=== PATIENT | female | born 1935 | race Caucasian/White ===

== ENCOUNTER 2018-11-18 11:41 | Inpatient (IN) ==
[2018-11-18] MEDS ORDERED: NON-FORMULARY MEDICATION 1 EACH EACH (Piperacillin-Tazo-Dextrose,Iso [Zosyn 3.375 Gm/50 Ml IV SCH (18:45)
[2018-11-18] MEDS: Levalbuterol Neb 1.25 MG/3 ML IH SCH ×2 (23:15→23:36)
[2018-11-18] MEDS: Ipratropium Neb 0.5 MG NEBULIZER IH SCH (23:36)
[2018-11-19] MEDS: Piperacillin/Tazobactam 3.375 GM in 0.9 % Sodium Chloride Mini Bag 100 ML IVPB SCH ×3 (00:19→17:01)
[2018-11-19] MEDS: Ipratropium Neb 0.5 MG NEBULIZER IH SCH (03:39)
[2018-11-19] MEDS: Levalbuterol Neb 1.25 MG/3 ML IH SCH ×2 (03:39→08:15)
[2018-11-19 06:19] LABS: Basophils % 0.1 %; Hematocrit 37.9 % (35.3-44.9); Hemoglobin 12.8 g/dL (11.5-15.4); Immature Granulocytes % 0.4 % (0-4); Lymphocytes # 0.4 K/mcL (0.6-4.6); Lymphocytes % 3.9 %; Mean Corpuscular HGB Conc 33.8 g/dL (31.6-35.5); Mean Corpuscular Hemoglobin 29.9 pg (28.0-33.3); Mean Corpuscular Volume 88.6 fL (83.0-100.0); Mean Platelet Volume 9.3 fL (9.4-12.4); Monocytes # 0.5 K/mcL (0.0-1.3); Monocytes % 4.7 %; Platelet Count 253 K/mcL (140-400); Red Blood Count 4.28 M/mcL (3.82-4.97); Red Cell Distribution Width 13.2 % (11.5-14.5); Segmented Neutrophils % 90.9 %
[2018-11-19 06:21] LABS: Neutrophils # 9.8 K/mcL (1.6-8.9)
[2018-11-19 07:00] LABS: BUN/Creatinine Ratio 67 (6-26); Blood Urea Nitrogen 26 mg/dL (8-23); Calcium 8.6 mg/dL (8.6-10.3); Carbon Dioxide 45 mEq/L (23-29); Chloride 86 mEq/L (98-107); Glucose 113 mg/dL (70-105); Osmolality,Calculated 288 (280-300); Potassium 3.5 mEq/L (3.5-5.1); Sodium 136 mEq/L (136-145); eGFR For Non-African Americans > 60 (> 60)
[2018-11-19] MEDS ORDERED: predniSONE 10 MG TABLET PO SCH (09:00)
[2018-11-19] MEDS: Multivit/Ca/Min/Fe/FA 1 TAB TABLET PO SCH (09:02)
[2018-11-19] MEDS ORDERED: Levalbuterol Neb 1.25 MG/3 ML IH PRN (09:46)
[2018-11-19] MEDS ORDERED: Tiotropium 18 MCG inhalation IH ONE (10:13)
[2018-11-19] MEDS: Tiotropium 18 MCG inhalation IH SCH (10:29)
--- NOTE | 2018-11-19 15:40 | Internal Med History&Physical ---
Date of Encounter: 11/19/18 Time of Encounter: 15:05 Assessment and Plan (1) Pneumonia Current visit: No Status: Acute Chest CTA 11/10/2018 showed bilateral multifocal airspace disease greatest in the lower lobes. Continue IV Zosyn through 11/22/2018. Lactobacillus will be added. Qualifiers: Pneumonia type: due to unspecified organism Laterality: bilateral Lung location: lower lobe of lung Qualified Code(s): J18.1 - Lobar pneumonia, unspe cified organism (2) Edema Current visit: Yes Status: Acute Check BN peptide in a.m. Reduce prednisone dose. Qualifiers: Edema type: unspecified Qualified Code(s): R60.9 - Edema, unspecified (3) Anxiety Current visit: Yes Status: Acute Xanax will be available prn (4) DJD (degenerative joint disease) Current visit: Yes Status: Acute Tylenol be available prn. Qualifiers: Osteoarthritis location: multiple joints Osteoarthritis type: primary Qualified Code(s): M15.0 - Primary generalized (osteo)arthritis (5) Weight loss Current visit: Yes Status: Acute TSH was normal at 0.545 on 11/18/2018. CT of chest abdomen pelvis did not show pathology suspicious for malignancy. (6) COPD with acute exacerbation Current visit: No Status: Acute Continue to taper prednisone. Spiriva has been ordered along with prn Xopenex nebulizer Rx. Internal Medicine - H&P: HPI Chief complaint: Weakness, pneumonia Admitted From: Hospital to Hospital Transfer Plans for Post Hospital Care: Home History of present illness: Ms. Cooper is a 83 year old female who was hospitalized at [facility] November 10- after presenting following a fall at home. She was found to have sepsis/pneumonia. Hyponatremia was present but corrected during her hospital stay. Elevated troponin was felt to be due to demand ischemia. Following stabilization she was discharged to [facility] swing bed for continuation of IV antibiotics and r ehabilitation therapy. Respiratory history is significant for having smoked from age 20 until quitting 1 week ago. She smoked up to 2 packs per day. She states she had PFTs many years ago and was diagnosed with emphysema. She does not use home oxygen. Cardiovascular history is negative for hypertension WI DVT or pulmonary embolus. Echocardiogram 11/11/2018 showed LVEF 65%. There was mild tricuspid regurgitation and mild to moderate pulmonary hypertension with estimated RVSP 47 mmHg. Interventricular septum and posterior wall thickness measurements were 1.30 and 1.10 cm respectively. E/A ratio was 0.70. Past Med Surg Social Fam HX - Past Medical History Medical history: no medical history, other Additional medical history: Smoker Psychiatric history: no psych history - Past Surgical History Surgical History: no surgical history Additional surgical history: unknown - Social History Smoking Status: Current every day smoker Smokeless Tobacco Status: No Alcohol use: none Drug use: none Internal Medicine - H&P: Meds Multivit-Min/Iron/Folic Acid/K [Adults Multivitamin Tablet] 1 tab PO DAILY 11/11/18 [History] Ipratropium Neb [Atrovent Neb] 0.5 mg IH [id number] inhsol 11/18/18 [Rx] Levalbuterol Neb [Xopenex Neb] 1.25 mg IH [id number] vial.neb 11/18/18 [Rx] Qtzdqfkqcdno-Sble-Xppajhbf,Iso [Zosyn 3.375 gm/50 ml Galaxy] 3.375 gm IV Q8H 4 Days #12 froz.piggy 11/18/18 [Rx] predniSONE [PredniSONE] See Taper PO DAILY 21 Days #63 tablet 11/18/18 [Rx] Allergy/AdvReac Type Severity Reaction Status Date / Time No Known Allergies Allergy Verified 11/10/18 16:38 All Systems PM: A 10-system review of systems was performed and is negative for pertinent findings except as documented above in the HPI. Review of systems: Gen.: She states her weight has declined at least 25 pounds in the past 2-3 years, unintentionally. She attributes this to change in her diet. Cardiovascular: As per history of present illness Respiratory: As per history of present illness GI: She denies disorders of her liver gallbladder or exocrine pancreas : She denies hematuria dysuria or kidney stones Neurologic: She denies large distribution strokes or seizures. Endocrine: She denies diabetes thyroid disease or hyperlipidemia Hematology/oncology: She denies blood disorders cancers or anemia Psychiatric: She has anxiety but denies depression or other mental health diagnosis [place] skeletal: She has had right total shoulder replacement approximately 1998. She has had right leg vein stripping surgery. She denies other bone joint or muscle disorders. - Constitutional Vitals: Temp Pulse Resp BP Pulse Ox 98.0 F 93 14 124/72 89 11/19/18 06:58 11/19/18 12:36 11/19/18 10:29 11/19/18 06:58 11/19/18 12:36 Exam: Gen.: She is a well-developed lean female sitting comfortably in chair at bedside who appears in no acute distress HEENT: Head is atraumatic and normocephalic. Eyes: EOMI. There is no scleral icterus. Mouth: Mucosa is moist. Neck: Supple and nontender. There is no thyromegaly or adenopathy noted. Heart: Regular without murmurs gallops or ectopics Lungs: No wheezes or crackles are heard. Abdomen: Soft and nontender. Exam is limited because she is in the seated posi tion. Extremities: She has significant DJD changes of her hands. She has 1-2+ edema of the dorsum of the feet and lower anterior shins bilaterally. Dorsalis pedis and posterior tibial pulses are trace palpable. Neurologic: Mental status: She is talkative and a good historian. Cranial nerves: Smile is symmetric. Forehead wrinkles bilaterally. Tongue protrudes midline. EOMI. Motor: There is no pronator drift. Cerebellar: Finger to nose is intact bilaterally. Skin: Warm and dry Internal Med - H&P Results - Labs CBC & Chem 7: 11/19/18 05:47 11/19/18 05:47 Labs: Short CBC 11/19/18 Range/Units 05:47 WBC 10.8 D (4.3-11.1) K/mcL Hgb 12.8 (11.5-15.4) g/dL Hct 37.9 (35.3-44.9) % Plt Count 253 (140-400) K/mcL Neutrophils # 9.8 H (1.6-8.9) K/mcL BMP 11/19/18 05:47 Sodium 136 Potassium 3.5 Chloride 86 L Carbon Dioxide 45 H* BUN 26 H Creatinine 0.39 L Glucose 113 H Calcium 8.6
[2018-11-19] MEDS ORDERED: ALPRAZolam 0.25 MG TABLET PO PRN (15:55)
[2018-11-19] MEDS ORDERED: Acetaminophen 325 MG TABLET PO PRN (15:56)
[2018-11-19] MEDS: Lactobacillus 1 EACH CAP.SPRINK PO SCH (20:54)
[2018-11-20] MEDS: Piperacillin/Tazobactam 3.375 GM in 0.9 % Sodium Chloride Mini Bag 100 ML IVPB SCH ×3 (00:41→15:35)
[2018-11-20 06:26] LABS: Basophils % 0.1 %; Eosinophils % 0.1 %; Hematocrit 39.7 % (35.3-44.9); Hemoglobin 13.3 g/dL (11.5-15.4); Immature Granulocytes % 0.3 % (0-4); Lymphocytes # 0.9 K/mcL (0.6-4.6); Lymphocytes % 8.1 %; Mean Corpuscular HGB Conc 33.5 g/dL (31.6-35.5); Mean Corpuscular Volume 89.4 fL (83.0-100.0); Mean Platelet Volume 9.4 fL (9.4-12.4); Monocytes # 0.9 K/mcL (0.0-1.3); Monocytes % 8.4 %; Neutrophils # 9.3 K/mcL (1.6-8.9); Platelet Count 271 K/mcL (140-400); Red Blood Count 4.44 M/mcL (3.82-4.97); Red Cell Distribution Width 13.2 % (11.5-14.5)
[2018-11-20 06:57] LABS: Alanine Aminotransferase 32 Units/L (7-52); Albumin 2.5 g/dL (3.5-5.7); Alkaline Phosphatase 46 Units/L (34-104); Aspartate Amino Transferase 23 Units/L (13-39); BUN/Creatinine Ratio 65 (6-26); Bilirubin,Total 0.8 mg/dL (0.3-1.0); Blood Urea Nitrogen 28 mg/dL (8-23); Calcium 8.5 mg/dL (8.6-10.3); Carbon Dioxide 42 mEq/L (23-29); Chloride 85 mEq/L (98-107); Globulin 2.4 g/dL (2.4-3.5); Glucose 75 mg/dL (70-105); Osmolality,Calculated 278 (280-300); Potassium 3.7 mEq/L (3.5-5.1); Sodium 132 mEq/L (136-145); Total Protein 4.9 g/dL (6.4-8.9); eGFR For Non-African Americans > 60 (> 60)
[2018-11-20] MEDS: Multivit/Ca/Min/Fe/FA 1 TAB TABLET PO SCH (08:11)
[2018-11-20] MEDS: Lactobacillus 1 EACH CAP.SPRINK PO SCH ×2 (08:11→19:54)
[2018-11-20] MEDS: predniSONE 20 MG TABLET PO SCH (08:11)
[2018-11-20] MEDS: Tiotropium 18 MCG inhalation IH SCH (09:24)
--- NOTE | 2018-11-20 12:50 | Internal Med Progress Note ---
Date of Encounter: 11/20/18 Time of Encounter: 12:40 - Assessment and plan (1) Pneumonia Current Visit: No Status: Acute Assessment and plan: November 20. Continue IV Zosyn with lactobacillus through 11/22/2018. Qualifiers: Pneumonia type: due to unspecified organism Laterality: bilateral Lung location: lower lobe of lung Qualified Code(s): J18.1 - Lobar pneumonia, unspecified organism (2) Edema Current Visit: Yes Status: Acute Assessment and plan: November 22. BN peptide minimally elevated at 116. Suspect edema partly due to prednisone. Will give a low dose of Bumex to assist in diuresis. Qualifiers: Edema type: unspecified Qualified Code(s): R60.9 - Edema, unspecified (3) Anxiety Current Visit: Yes Status: Acute Assessment and plan: November 20. Continue Xanax prn (4) DJD (degenerative joint disease) Current Visit: Yes Status: Acute Assessment and plan: November 20. Continue prn Tylenol Qualifiers: Osteoarthritis location: multiple joints Osteoarthritis type: primary Qualified Code(s): M15.0 - Primary generalized (osteo)arthritis (5) Weight loss Current Visit: Yes Status: Acute Assessment and plan: November 20. TSH was normal at 0.545 on 11/18/2018. CT of chest abdomen pelvis did not show pathology suspicious for malignancy. (6) COPD with acute exacerbation Current Visit: No Status: Acute Assessment and plan: November 20. Continue prednisone taper. - Subjective Interval history: November 20. She has no new complaints. - Constitutional Vitals: Temp Pulse Resp BP Pulse Ox 97.9 F 90 18 124/59 90 11/20/18 06:46 11/20/18 06:46 11/20/18 09:25 11/20/18 06:46 11/20/18 09:25 Exam: She is resting comfortably in bed and appears in no acute distress. Her affect is bright and cheerful. She has 1-2+ edema of her lower legs bilaterally. Internal Medicine: Result - Labs CBC & Chem 7: 11/20/18 05:00 11/20/18 05:00 Labs: Short CBC 11/20/18 Range/Units 05:00 WBC 11.2 H (4.3-11.1) K/mcL Hgb 13.3 (11.5-15.4) g/dL Hct 39.7 (35.3-44.9) % Plt Count 271 (140-400) K/mcL Neutrophils # 9.3 H (1.6-8.9) K/mcL BMP 11/20/18 05:00 Sodium 132 L Potassium 3.7 Chloride 85 L Carbon Dioxide 42 H* BUN 28 H Creatinine 0.43 L Glucose 75 Calcium 8.5 L Liver Function 11/20/18 Range/Units 05:00 Total Bilirubin 0.8 (0.3-1.0) mg/dL AST 23 (13-39) Units/L ALT 32 (7-52) Units/L Alkaline Phosphatase 46 (34-104) Units/L Albumin 2.5 L (3.5-5.7) g/dL Consult Discharge Plan - Plan Referrals: Jamie Hernandez MD [Partnered Physician] - 1 week (November @ 1:00pm with Kaya Doan CNP)
[2018-11-20] MEDS ORDERED: Bumetanide 1 MG TABLET PO ONE (12:52)
[2018-11-21] MEDS: Piperacillin/Tazobactam 3.375 GM in 0.9 % Sodium Chloride Mini Bag 100 ML IVPB SCH ×3 (01:06→16:33)
[2018-11-21] MEDS: predniSONE 20 MG TABLET PO SCH (10:08)
[2018-11-21] MEDS: Lactobacillus 1 EACH CAP.SPRINK PO SCH ×2 (10:08→20:09)
[2018-11-21] MEDS: Multivit/Ca/Min/Fe/FA 1 TAB TABLET PO SCH (10:08)
[2018-11-21] MEDS: Tiotropium 18 MCG inhalation IH SCH (11:00)
[2018-11-21] MEDS: Bumetanide 1 MG TABLET PO SCH (16:33)
[2018-11-22] MEDS: Piperacillin/Tazobactam 3.375 GM in 0.9 % Sodium Chloride Mini Bag 100 ML IVPB SCH ×3 (00:27→16:55)
[2018-11-22] MEDS: Lactobacillus 1 EACH CAP.SPRINK PO SCH ×2 (07:42→21:01)
[2018-11-22] MEDS: predniSONE 20 MG TABLET PO SCH (07:42)
[2018-11-22] MEDS: Multivit/Ca/Min/Fe/FA 1 TAB TABLET PO SCH (07:42)
[2018-11-22] MEDS: Bumetanide 1 MG TABLET PO SCH (07:42)
[2018-11-22] MEDS ORDERED: MOM Conc 10 ML UD.LIQ PO ONE (09:47)
[2018-11-22] MEDS: Tiotropium 18 MCG inhalation IH SCH (11:02)
[2018-11-23] MEDS: Piperacillin/Tazobactam 3.375 GM in 0.9 % Sodium Chloride Mini Bag 100 ML IVPB SCH ×2 (00:49→09:51)
[2018-11-23 07:08] VITALS: BP 101/63
[2018-11-23] MEDS: predniSONE 20 MG TABLET PO SCH (09:55)
[2018-11-23] MEDS: Lactobacillus 1 EACH CAP.SPRINK PO SCH (09:55)
[2018-11-23] MEDS: Multivit/Ca/Min/Fe/FA 1 TAB TABLET PO SCH (09:55)
[2018-11-23] MEDS: Bumetanide 1 MG TABLET PO SCH (09:55)
[2018-11-23] MEDS: Tiotropium 18 MCG inhalation IH SCH (09:55)
--- NOTE | 2018-11-23 14:42 | Discharge Summary ---
Date of Encounter: 11/23/18 Time of Encounter: 14:25 - Discharge Diagnosis (1) Pneumonia Priority: Primary Status: Resolved Qualifiers: Pneumonia type: due to unspecified organism Laterality: bilateral Lung location: lower lobe of lung Qualified Code(s): J18.1 - Lobar pneumonia, unspecified organism (2) Edema Priority: Secondary Status: Acute Qualifiers: Edema type: unspecified Qualified Code(s): R60.9 - Edema, unspecified (3) Anxiety Priority: Secondary Status: Chronic (4) DJD (degenerative joint disease) Priority: Secondary Status: Chronic Qualifiers: Osteoarthritis location: multiple joints Osteoarthritis type: primary Qualified Code(s): M15.0 - Primary generalized (osteo)arthritis (5) Weight loss Priority: Secondary Status: Acute (6) COPD with acute exacerbation Priority: Secondary Status: Acute Hospital course: Ms. Cooper is a 83 year old female who was hospitalized at [facility] November 10- after presenting following a fall at home. She was found to have sepsis/pneumonia. Hyponatremia was present but corrected during her hospital stay. Elevated troponin was felt to be due to demand ischemia. Following stabilization she was discharged to [facility] swing bed for continuation of IV antibiotics and rehabilitati on therapy. Initial orders were written by the discharging physicians at [facility]. I saw her on November 19 and performed the swing bed history and physical. She continue on IV Zosyn through November 22 as per [facility] discharge orders. Prednisone was tapered. She was given Bumex for edema. She will continue prednisone and Bumex with supplemental potassium for 3 additional days at discharge. She had physical therapy and occupational therapy evaluations with ongoing intervention. She made satisfactory progress. On November 23 she stated she felt stable for discharge home. Home health services will be ordered. Room air oximetry will be checked on 6 minute walk prior to discharge. I strongly encouraged her to become a nonsmoker. She will follow with Dr. Jamie Hernandez within 1 week. - Time Spent with Patient Total time spent providing and/or coordinating discharge services: - Discharge Medications Prescriptions: New Bumetanide [Bumex] 1 mg PO DAILY #3 tablet Potassium Chloride 10 meq PO DAILY #3 tab.er.prt predniSONE [PredniSONE] 10 mg PO DAILY #3 tablet Tiotropium [Spiriva] 18 mcg IH DAILYR #30 inh Budesonide/Formoterol 160/4.5 [Symbicort 160/4.5] 2 puff IH BIDR #1 hfa.aer.ad Continued Multivit-Min/Iron/Folic Acid/K [Adults Multivitamin Tablet] 1 tab PO DAILY Levalbuterol Neb [Xopenex Neb] 1.25 mg IH [id number] vial.neb Ipratropium Neb [Atrovent Neb] 0.5 mg IH [id number] inhsol Discontinued predniSONE [PredniSONE] See Taper PO DAILY 21 Days #63 tablet Home Medications: Multivit-Min/Iron/Folic Acid/K [Adults Multivitamin Tablet] 1 tab PO DAILY 11/11/18 [History] Ipratropium Neb [Atrovent Neb] 0.5 mg IH [id number] inhsol 11/18/18 [Rx] Levalbuterol Neb [Xopenex Neb] 1.25 mg IH [id number] vial.neb 11/18/18 [Rx] Budesonide/Formoterol 160/4.5 [Symbicort 160/4.5] 2 puff IH BIDR #1 hfa.aer.ad 11/23/18 [Rx] Bumetanide [Bumex] 1 mg PO DAILY #3 tablet 11/23/18 [Rx] Potassium Chloride 10 meq PO DAILY #3 tab.er.prt 11/23/18 [Rx] Tiotropium [Spiriva] 18 mcg IH DAILYR #30 inh 11/23/18 [Rx] predniSONE [PredniSONE] 10 mg PO DAILY #3 tablet 11/23/18 [Rx] Allergies/Adverse Reactions: Allergy/AdvReac Type Severity Reaction Status Date / Time No Known Allergies Allergy Verified 11/10/18 16:38 Date of admission: 11/18/18 21:50 Primary care physician: Jamie Hernandez M.D. Consults: 11/18/18 18:33 Consult to Tai Chi Instructor [CONS] Routine Reason for SW Consult: discharge planning 11/18/18 18:36 Consult to Physical Therapy [CONS] Routine Comment: Evaluate, develop and implement POC Reason for Consult: weakness Does patient have active BEDREST order?: No Is patient medically & hemodynamically stable?: Yes Patient assessed for mobility or mobilized this visit?: Yes OT [Consult to Occupational Therapy] [CONS] Routine Comment: Evaluate, develop and implement POC Reason for Consult: weakness Does patient have active BEDREST order?: No Is patient medically & hemodynamically stable?: Yes Patient assessed for mobility or mobilized this visit?: Yes - Constitutional Vitals: Temp Pulse Resp BP Pulse Ox 97.4 F L 83 24 101/63 91 11/23/18 07:07 11/23/18 07:07 11/23/18 09:55 11/23/18 07:07 11/23/18 09:55 - Patient Status Disposition: Home Health Service - Discharge Instructions Follow Up With: Jamie Hernandez MD [Partnered Physician] - 1 week (November @ 1:00pm with Kaya Doan CNP) - Diet and Activity Activity: resume usual activities as tolerated Diet: advance to your usual diet
--- NOTE | 2018-11-23 14:47 | Physician Discharge Referral ---
Home Health/Hosp Referral Info Transfer to: Home Health Attending Provider: Avni Provider in Charge Post Discharge: PCP (Jamie Hernandez M.D.) - Diagnosis (1) Pneumonia Priority: Primary Status: Resolved (2) Edema Priority: Secondary Status: Acute (3) Anxiety Priority: Secondary Status: Chronic (4) DJD (degenerative joint disease) Priority: Secondary Status: Chronic (5) Weight loss Priority: Secondary Status: Acute (6) COPD with acute exacerbation Priority: Secondary Status: Acute - Respiratory Orders Smoking Cessation: Smoking cessation has been advised. For more information, call the [place] [employer] Line at 0-537-QJMQ-NOW. - Diet/Nutrition Diet/Nutrition Orders: Regular - Activity Activity Orders: Ambulate - Services Needed Following services are medically necessary services: Nursing, Home Health Aide, Physical Therapy, Occupational Therapy - Transfer Medications Prescriptions: Bumetanide [Bumex] 1 mg PO DAILY #3 tablet Potassium Chloride 10 meq PO DAILY #3 tab.er.prt predniSONE [PredniSONE] 10 mg PO DAILY #3 tablet Tiotropium [Spiriva] 18 mcg IH DAILYR #30 inh Budesonide/Formoterol 160/4.5 [Symbicort 160/4.5] 2 puff IH BIDR #1 hfa.aer.ad Home Medications: Multivit-Min/Iron/Folic Acid/K [Adults Multivitamin Tablet] 1 tab PO DAILY 11/11/18 [History] Ipratropium Neb [Atrovent Neb] 0.5 mg IH [id number] inhsol 11/18/18 [Rx] Levalbuterol Neb [Xopenex Neb] 1.25 mg IH [id number] vial.neb 11/18/18 [Rx] Budesonide/Formoterol 160/4.5 [Symbicort 160/4.5] 2 puff IH BIDR #1 hfa.aer.ad 11/23/18 [Rx] Bumetanide [Bumex] 1 mg PO DAILY #3 tablet 11/23/18 [Rx] Potassium Chloride 10 meq PO DAILY #3 tab.er.prt 11/23/18 [Rx] Tiotropium [Spiriva] 18 mcg IH DAILYR #30 inh 11/23/18 [Rx] predniSONE [PredniSONE] 10 mg PO DAILY #3 tablet 11/23/18 [Rx] Allergies/Adverse Reactions: Allergy/AdvReac Type Severity Reaction Status Date / Time No Known Allergies Allergy Verified 11/10/18 16:38 Certification: Further, I certify that my clinical findings support that this patient is homebound (i.e. absences from home require considerable and taxing effort and are for medical reasons or hoahaoism services or infrequently or short duration when for other reasons) because: Homebound Reason: Leaving home requires considerable and taxing effort due to condition (Severe COPD, resolving pneumonia) Attestation: My signature below is to certify that this patient is under my care and that I, or nurse practitioner, or a physician's assistant maintenance manager working with me, has a [id number] encounter with this patient.
== END 2018-11-23 17:55 | disposition home health service (06) | DRG 194 ==
LOC: INPPIK 21:50
PROVIDERS: ADMIT Internal Medicine; ATTEND Internal Medicine